=== PATIENT | female | born 1930 | race Caucasian/White ===

== ENCOUNTER 2019-07-12 05:43 | Inpatient (IN) | payer OTHER ==
[~2019-07-12] VITALS: Ht 162.6 cm; Wt 66.2 kg
[2019-07-12 05:44] VITALS: BP 141/58
[2019-07-12 06:10] LABS: ABSOLUTE LYMPHOCYTES 1.1 thou/uL (0.8-5.3); ABSOLUTE MONOCYTES 0.7 thou/uL (0.0-1.2); ABSOLUTE NEUTROPHILS 8.6 thou/uL (1.6-8.1); BASOPHILS 0.2 %; HEMATOCRIT 46.3 % (37.0-47.0); HEMOGLOBIN 16.1 gm/dL (12.0-15.0); LYMPHOCYTES 10.4 %; MCH 34.3 pg (26.0-34.0); MCHC 34.8 g/dL (28.0-37.0); MCV 98.6 fL (80.0-100.0); MONOCYTES 6.8 %; MPV 7.1 fl. (7.2-11.1); NUCLEATED RBCS 0 /100WBC; PLATELET COUNT* 316 thou/uL (150-400); POLYS 82.6 %; RDW-CV 12.7 % (10.5-14.5); WBC 10.4 thou/uL (4.0-11.0)
[2019-07-12 06:23] LABS: INR 1.1; PROTIME 11.4 Seconds (9.20-11.50)
[2019-07-12 06:34] LABS: CALCIUM 8.5 mg/dL (8.5-10.1); CREATININE 1.2 mg/dL (0.6-1.3); POTASSIUM 3.5 mmol/L (3.5-5.1)
[2019-07-12 06:45] LABS: ALBUMIN 3.8 g/dL (3.4-5.0); TOTAL BILIRUBIN 0.2 mg/dL (<0.1-1.0); TOTAL PROTEIN 7.4 g/dL (6.4-8.2)
[2019-07-12 07:01] LABS: URINE BILIRUBIN NEGATIVE (Negative); URINE BLOOD 1+ (Negative); URINE CLARITY CLEAR; URINE COLOR YELLOW; URINE GLUCOSE-RANDOM NEGATIVE (Negative); URINE KETONES 2+ (Negative); URINE LEUKOCYTES-REFLEX NEGATIVE (Negative); URINE NITRITE-REFLEX NEGATIVE (Negative); URINE PROTEIN 2+ (Negative); URINE SPECIFIC GRAVITY >= 1.030 (1.005-1.030); URINE UROBILINOGEN 0.2 E.U./dl (0.2-1.0)
[2019-07-12 07:07] LABS: SQUAMOUS 4-10 Moderate /LPF (0-3)
[2019-07-12 07:08] LABS: BACTERIA-REFLEX >30 Many /HPF (None Seen); CRYSTALS None Seen /LPF (None Seen); FINE GRANULAR CASTS 0-3 Few /LPF (None Seen); HYALINE CASTS 0-3 Few /LPF (None Seen); MUCUS 4-6 Moderate strn/LPF (None Seen); WBC CLUMPS Few (None Seen)
[2019-07-12 07:08] LABS: INFLUENZA A ANTIGEN Negative (Negative); INFLUENZA B ANTIGEN Negative (Negative)
[2019-07-12] MEDS ORDERED: ELIQUIS2.5 MG PO (07:17)
[2019-07-12] MEDS ORDERED: LIPITOR10 MG PO (07:18)
[2019-07-12] MEDS ORDERED: NORCO 5-325 TA1 EAC1 PO (07:18)
--- NOTE | 2019-07-12 07:27 | NUR ---
PT ASKED THAT WE CALL HER DAUGHTER, MICHELLE TREADWELL [phone], TO GET ACCURATE MEDICATION RECORD FOR THE PT. THE PATIENT'S DAUGHTER STATES THAT THE PATIENT IS WITHDRAWING FROM HYDROCODONE AT THIS TIME AND THAT IS THE REASON SHE CALLED EMS. PT RAN OUT OF HYDROCODONE ON FRIDAY AND C/O HEADACHE, NAUSEA AND VOMITING AT THIS TIME. ER PHYSICIAN MADE AWARE OF SITUATION. THE PATIENT DAUGHTER STATES THAT THIS HAPPENS FREQUENTLY AND THE PATIENT NORMALLY GOES TO [place] AND WAS CONFUSED TO WHY SHE WAS BROUGHT TO THIS FACILITY. SHE STATES THAT [facility] KNOWS THE PATIENT WELL AND THAT SHE IS DEPENDENT ON HYDROCODONE.
[2019-07-12 08:08] VITALS: BP 111/49
[2019-07-12 08:30] VITALS: BP 110/52
[2019-07-12 12:00] VITALS: BP 138/71
--- NOTE | 2019-07-12 12:10 | NUR ---
RECEIVED REPORT FROM ER, GET SITUATED TO ROOM. TELE IN PLACED TRACING V PACED. AOX3, FORGETFUL, O2 SAT 90'S RA. UP WITH ASSIST, USES WALKER. PT COMPLAINS OF HEADACHE. PAIN MEDS GIVEN AT ED. PT ON IV FLUIDS. PT ADMISSION ASSESSMENT CHARTED. VSS, HOURLY ROUNDING. WILL CONTINUE TO MONITOR,
[2019-07-12 16:14] VITALS: BP 136/73
[2019-07-12 20:00] VITALS: BP 110/71
[2019-07-13] VITALS: BP 132/59
[2019-07-13 04:00] VITALS: BP 148/69
[2019-07-13 06:09] LABS: ABSOLUTE LYMPHOCYTES 2.6 thou/uL (0.8-5.3); ABSOLUTE MONOCYTES 0.6 thou/uL (0.0-1.2); ABSOLUTE NEUTROPHILS 2.9 thou/uL (1.6-8.1); BASOPHILS 0.5 %; EOSINOPHILS 0.4 %; HEMATOCRIT 37.6 % (37.0-47.0); LYMPHOCYTES 42.4 %; MCH 34.6 pg (26.0-34.0); MCHC 34.6 g/dL (28.0-37.0); MONOCYTES 9.8 %; MPV 6.8 fl. (7.2-11.1); NUCLEATED RBCS 0 /100WBC; PLATELET COUNT* 256 thou/uL (150-400); POLYS 46.9 %; RBC 3.76 mil/uL (4.20-5.00); WBC 6.2 thou/uL (4.0-11.0)
[2019-07-13 06:17] LABS: CALCIUM 8.1 mg/dL (8.5-10.1); POTASSIUM 3.4 mmol/L (3.5-5.1)
--- NOTE | 2019-07-13 07:44 | NUR ---
ASSUMED PT CARE AT APPROX 1930. PT IS AWAKE AND ORIENTED X4. VSS ON 2L OF O2/NC. PT IS V-PACED ON THE SENIOR FOREMAN, SOMETIMES SR w/ 1DAVB. ASSESSMENT DONE AND CHARTED. PT C/O HEADACHE PARTIALLY RELIEVED BY PAIN MEDS GIVEN PER OCT. CALL LIGHT WITHIN REACH. HOURLY ROUNDING DONE FOR PT SAFETY. HIGH FALL PRECAUTIONS IN PLACE.
[2019-07-13 08:00] VITALS: BP 154/62
--- NOTE | 2019-07-13 10:53 | EKG ---
[place] [address] ELECTROCARDIOGRAM REPORT Name: KWESI PERERA Room: [address] ADM IN [facility].#: [id number] Admission: 07/12/19 Attend Phys: Thais Sethi Discharge: Date of : [birth year] Report #: [id number] THIS REPORT FOR: //name// [facility] ED Test Date: 2019-07-12 Test Time: 05:51:33 Pat Name: KWESI PERERA Department: Room: [facility] Gender: F Orthopedics Pediatric Physician: TYRELL : 1930 Requested By: Ismael Acuna Order Number: [id number] MD: Richard Dominguez Measurements Intervals [place] Rate: 101 P: 0 PA: 104 QRS: -57 QRSD: 160 T: 117 QT: 413 QTc: 536 Interpretive Statements Ventricular-paced rhythm No further analysis attempted due to paced rhythm Baseline wander in lead(s) I,III,aVL,aVF No previous ECG available for comparison Electronically Signed On 07-13-2019 10:52:46 PATTERN GENERATOR OPERATOR by Richard Dominguez [email or web address] <ELECTRONICALLY SIGNED> By: Richard Dominguez MD, FACC 07/13/19 1052 0551 0551 Richard Dominguez MD, FAC /EPI
--- NOTE | 2019-07-13 11:05 | NUR ---
ASSUMED PT CARE AT 0800, AOX4, UP SBA, USES WALKER.O2 SAT 90'S RA. TRACING SR, 1ST DEGREE ON TELE. PT COMPLAINS OF CHRONIC HEADACHE. PAIN MEDS GIVEN PER MAR. PT ON FLUIDS. PT ON VANC. PT HAS ID CONSULT. VSS, AM ASSESSMENT CHARTED, HOURLY ROUNDING, WILL CONTINUE TO MONITOR.
[2019-07-13 12:38] VITALS: BP 107/47
--- NOTE | 2019-07-13 14:26 | NUR ---
MET WITH PT TO DISCUSS HOME SITUATION/DC PLANNING. PT LIVES ALONE IN APT, IS INDEPENDENT AND ACTIVE. USES WALKER WITH SEAT. INDEPENDENT WITH ADLS. DTR DOES SHOPPING AND TAKES TO APPTS. PT HAS HAD HH IN THE PAST, CANNOT REMEMBER NAME OF AGENCY. PT DENIES ANY DC NEEDS. PLANS TO RETURN HOME. WILL FOLLOW
[2019-07-13 20:00] VITALS: BP 131/58
--- NOTE | 2019-07-14 04:25 | NUR ---
ASSUMED PT CARE AT APPROX 1930. PT IS AWAKE AND ORIENTED X4. VSS ON ROOM AIR. ASSESSMENT DONE AND CHARTED. PAIN MEDS GIVEN PER MAR FOR HEADACHE. HIGH FALL PRECAUTIONS IN PLACE. CALL LIGHT WITHIN REACH. HOURLY ROUNDING DONE FOR PT SAFETY.
[2019-07-14 04:31] VITALS: BP 127/57
[2019-07-14 07:59] VITALS: BP 150/54
--- NOTE | 2019-07-14 09:33 | NUR ---
ASSUMED CARE OF PT THIS AM AROUND 714- MS STAUS IN PLACE AND MAINTAINED INDICATED- UPON ASSESSMENT PT NOTED TO BE RESTING IN BED- PT A&O X4- CONTINENT OF BOWEL/BLADDER- SBA WITH RW FOR TRANSFERS- LCTA, RESP EVEN AND UN-LABORED- VSS, O2 SAT 99% ON RA- ABD SOFT/ROUND/NON-TENDER, BS X4 QUADS- LAST BM REPORTED X3 DAYS AGO- IV NOTED TO LEFT FA INTACT, IVF INFUSSING PRESCRIBED- IV ABT GIVEN THIS AM PRESCRIBED- GOOD PO INTAKE NOTED THIS AM- PT DENIES ANY C/O PAIN/DISCOMFORT AT THIS TIME- CALL LIGHT AND PERSONAL BELONGINGS WITH IN REACH- PT MAKES NEEDS KNOWN- ALL NEEDS MET AT THIS TIME-WCTM
[2019-07-14 11:30] VITALS: BP 157/73
--- NOTE | 2019-07-14 11:48 | CON ---
[address] [address] CONSULTATION Name: KWESI PERERA Room: [address] IN .R.#: [id number] Admission: 07/12/19 Attend Phys: Thais Sethi Discharge: Date of : [birth year] Report #: [id number] THIS REPORT FOR: //name// CC: Chikis Urbina DATE OF SERVICE: 07/13/2019 INFECTIOUS DISEASE CONSULTATION ATTENDING PHYSICIAN: Wilver Ryan MD REASON FOR EVALUATION: Positive blood culture. HISTORY OF PRESENT ILLNESS: Chart reviewed, the patient examined. This 88-year-old with history of cardiac dysrhythmias has a pacemaker, chronic pain requiring narcotics, who presented with 1-day history of nausea, emesis, abdominal-related complaints and diarrhea. Due to her age, I did undergo evaluation as well as symptomatic treatment. Lactic acid was elevated at 4.7. Influenza antigen was negative. Urinalysis did show moderate degree of pyuria, marked bacteriuria. Chest x-ray was otherwise unremarkable. Blood cultures were drawn at that point now 1 out of 2 with growth of gram-positive cocci, empirically started on vancomycin. She states she feels much better. She did apparently have hallucinations, which has been attributed to the fentanyl. Denies significant pulmonary-related complaints and GI signs and symptoms have improved as well. ALLERGIES: None known. CURRENT MEDICATIONS: Include vancomycin, pantoprazole, atorvastatin, apixaban, hydrocodone, p.r.n. analgesics and antiemetics. PAST MEDICAL HISTORY: Pacemaker placement, chronic pain syndrome. SOCIAL HISTORY: Nonsmoker, no ethanol, no illicit drug use. FAMILY HISTORY: Noncontributory. REVIEW OF SYSTEMS: Otherwise, unremarkable 10-point review of systems with exception of the above. PHYSICAL EXAMINATION: GENERAL: She is quite distressed. It is related to anxiety and hallucinations last night. She was able to be redirected, appears somewhat chronically ill. VITAL SIGNS: Temperature 98.4, pulse 88, respirations 20, blood pressure 154/62[place] [address] CONSULTATION Name: KWESI PERERA Room: [address]#: [id number] Admission: 07/12/19 Attend Phys: Thais Sethi Discharge: Date of : [birth year] Report #: [id number] SKIN: Warm, dry, no rashes. HEENT: Normocephalic. Extraocular muscles intact. NECK: Supple. LUNGS: Diminished breath sounds. HEART: Regular. Borderline tachycardic. I do not appreciate a murmur. ABDOMEN: Soft, nontender. No peritoneal signs. GENITOURINARY AND RECTAL: Deferred. LABORATORY DATA: Blood culture 1 out of 2 with Gram-positive cocci, most recent lactic acid 1.6, that is down from 4.7. Initial CBC: White count 10.4, H and H 16.1 and 46.3, platelets of 316. Electrolytes: Sodium 128, potassium 3.5, chloride 88, bicarb of 17, anion gap of 23, BUN and creatinine 11 and 1.2, albumin of 3.8. LFTs unremarkable. Repeat sodium 142, anion gap of 12. CT abdomen and pelvis showed lumbar scoliosis, extensive vacuum disk changes, moderate atherosclerosis of the aorta, prominent intra and extrahepatic duct post-cholecystectomy, hiatal hernia, problems in the left renal collecting system without obstruction. ASSESSMENT AND PLAN: Positive blood culture in the setting of gram-positive cocci. This is likely due to be a false positive; however, given the lack of confirm diagnosis as to the etiology, may well have been self-limited, perhaps food borne illness. Certainly suggests the possibility of complicated urinary tract infection. In addition to the vancomycin, we will add gram-negative coverage. In the interim, wait for culture results. She remains tenuous at this point. We will monitor expectantly. Add incentive spirometry. Thank you, we will follow. <ELECTRONICALLY SIGNED> By: Anderson Malcolm MD 07/14/19 1148 1144 1210Joayleen Malcolm MD /nt
[2019-07-14 20:15] VITALS: BP 140/66
[2019-07-15 02:00] VITALS: BP 153/67
--- NOTE | 2019-07-15 05:01 | NUR ---
PT SLEPT ON AND OFF THIS SHIFT. ASSESSMENT DOCUMENTED. MEDS GIVEN PER E-OCT. IV PATENT, FLUIDS INFUSING. PAIN MEDS GIVEN PER E-OCT. PT UP TO BATHROOM SEVERAL TIMES THIS SHIFT. WILL CONTINUE WITH PLAN OF CARE.
[2019-07-15 08:00] VITALS: BP 136/58
--- NOTE | 2019-07-15 08:53 | NUR ---
ASSUMED CARE OF PT THIS AM AROUND 714- MS STATUS IN PLACE AND MAINTAINED INDICATED- UPON ASSESSMENT PT NOTED TO BE RESTING IN BED, HEATING PACK TO HEAD R/T HEADACHE- PT A&O X4- CONTINENT OF B/B- SBA WITH RW FOR TRANSFERS- LCTA, RESP EVEN AND UN-LABORED- VSS, O2 SAT 95% ON RA- ABD SOFT/ROUND/NON-TENDER, BS X4 QUADS- LAST BM REPORTED X4 DAYS AGO, REPORTS TO BE PASSING GAS- IV NOTED TO LEFT FA INTACT, IVF INFUSSING PRESCIBED- IV ABT GIVEN THIS AM PRESCIBED- GOOD PO INTAKE NOTED THIS AM WITH BREAKFAST- CALL LIGHT AND PERSONAL BELONGINGS WITH IN REACH- HOURLY ROUNDS IN PLACE R/T SAFETY/NEEDS- PT MAKES NEEDS KNOWN- ALL NEEDS MET AT THIS TIME-WCTM
[2019-07-15 10:27] VITALS: BP 136/58
--- NOTE | 2019-07-15 15:15 | NUR ---
ORDERS NOTED FOR DC, MET WITH PT TO DISCUSS HH, OPTIONS GIVEN AND [facility]OSE [facility]. CALLED AND FAXED ORDERS TO [facility]. [facility] HERE TO TALK WITH PT. PT TO RETURN TO HER APT, DTR WILL SPANISHER LATER. PT DENIES OTHER DC NEEDS
[2019-07-15] MEDS ORDERED: MINOCYCLINE HC100 M2 PO (15:45)
[2019-07-15 16:00] VITALS: BP 170/63
== END 2019-07-15 18:15 | disposition home health service (06) | DRG 871 ==
LOC: M.ERS 05:43 → M.TBA-ER 06:51 → M.2W 06:51 → M.TBA-ER 07:52 → M.2W 08:24
PROVIDERS: Family Medicine; Internal Medicine; ADMIT Internal Medicine
DX: A41.89 Other specified sepsis (principal); G92 Toxic encephalopathy; N39.0 Urinary tract infection, site not specified; E87.2 Acidosis; E87.1 Hypo-osmolality and hyponatremia; G89.4 Chronic pain syndrome; T50.905A Adverse effect of unspecified drugs, medicaments and biological substances, initial encounter; A08.4 Viral intestinal infection, unspecified; Z79.899 Other long term (current) drug therapy; Z95.0 Presence of cardiac pacemaker; Z87.891 Personal history of nicotine dependence; Y92.89 Other specified places as the place of occurrence of the external cause

== ENCOUNTER 2019-11-30 17:50 | Emergency (ER) | payer OTHER ==
[~2019-11-30] VITALS: Ht 162.6 cm; Wt 55.3 kg
[~2019-11-30 17:50] MED LIST: ELIQUIS2.5 MG PO; LIPITOR10 MG PO; MINOCYCLINE HC100 M2 PO; NORCO 5-325 TA1 EAC1 PO
[2019-11-30 18:53] LABS: ABSOLUTE BASOPHILS 0.1 thou/uL (0.0-0.2); ABSOLUTE MONOCYTES 0.7 thou/uL (0.0-1.2); ABSOLUTE NEUTROPHILS 4.9 thou/uL (1.6-8.1); BASOPHILS 0.7 %; EOSINOPHILS 0.4 %; HEMATOCRIT 46.9 % (37.0-47.0); HEMOGLOBIN 16.2 gm/dL (12.0-15.0); LYMPHOCYTES 25.7 %; MCHC 34.5 g/dL (28.0-37.0); MCV 98.7 fL (80.0-100.0); MONOCYTES 9.5 %; MPV 7.4 fl. (7.2-11.1); NUCLEATED RBCS 0 /100WBC; PLATELET COUNT* 284 thou/uL (150-400); POLYS 63.7 %; RBC 4.75 mil/uL (4.20-5.00); RDW-CV 12.9 % (10.5-14.5); WBC 7.7 thou/uL (4.0-11.0)
[2019-11-30 19:06] LABS: ALBUMIN 4.1 g/dL (3.4-5.0); CALCIUM 9.4 mg/dL (8.5-10.1); CREATININE 1.1 mg/dL (0.6-1.3); POTASSIUM 3.7 mmol/L (3.5-5.1); TOTAL BILIRUBIN 0.3 mg/dL (<0.1-1.0); TOTAL PROTEIN 8.3 g/dL (6.4-8.2)
[2019-11-30 19:16] LABS: URINE BILIRUBIN NEGATIVE (Negative); URINE BLOOD 1+ (Negative); URINE CLARITY CLEAR; URINE COLOR YELLOW; URINE GLUCOSE-RANDOM NEGATIVE (Negative); URINE KETONES NEGATIVE (Negative); URINE LEUKOCYTES-REFLEX NEGATIVE (Negative); URINE NITRITE-REFLEX NEGATIVE (Negative); URINE PROTEIN TRACE (Negative); URINE SPECIFIC GRAVITY 1.015 (1.005-1.030); URINE UROBILINOGEN 0.2 E.U./dl (0.2-1.0)
[2019-11-30 19:22] LABS: MUCUS None Seen strn/LPF (None Seen); SQUAMOUS 0-3 Few /LPF (0-3)
[2019-11-30 19:23] LABS: BACTERIA-REFLEX None Seen /HPF (None Seen); CASTS None Seen /LPF (None Seen); CRYSTALS None Seen /LPF (None Seen); URINE RBC 0-2 Rare /HPF (0-2); URINE WBC-REFLEX None Seen /HPF (0-5)
[2019-11-30 19:29] LABS: AMP/METHAMP Negative (Negative); BARBITURATES Negative (Negative); BENZODIAZEPINES Negative (Negative); COCAINE Negative (Negative); METHADONE Negative (Negative); OPIATES POSITIVE (Negative); PCP Negative (Negative); THC Negative (Negative)
[2019-11-30 20:11] LABS: SALICYLATE < 2.8 mg/dL (2.8-20.0)
[2019-11-30 20:12] LABS: ALCOHOL < 10 mg/dL (<10)
[2019-11-30 22:43] VITALS: BP 139/61
--- NOTE | 2019-12-01 08:51 | EKG ---
[place] [address] ELECTROCARDIOGRAM REPORT Name: KWESI PERERA Room: [facility]#: [id number] Admission: 11/30/19 Attend Phys: Discharge: 11/30/19 Date of : [birth year] Date of Service: 11/30/19 1755 Report #: [id number] THIS REPORT FOR: //name// [facility] ED Test Date: 2019-11-30 Test Time: 17:55:33 Pat Name: KWESI PERERA Department: Room: Gender: F Insurance Salesperson: [facility] : 1930 Requested By: Mian Wang Order Number: [id number] MD: Kamran Linda Measurements Intervals [place] Rate: 108 P: 240 [place]: 167 QRS: -54 QRSD: 164 T: 116 QT: 410 QTc: 550 Interpretive Statements Ventricular-paced rhythm No further analysis attempted due to paced rhythm Compared to ECG 07/12/2019 05:51:33 No significant changes Electronically Signed On 12-01-2019 8:50:23 CDT by Kamran Linda [email or web address] <ELECTRONICALLY SIGNED> By: Kamran Linda MD, FACC 12/01/19 0850 1755 1755 Kamran Linda MD, [facility] /EPI
== END 2019-11-30 22:43 | disposition short-term general hospital (02) ==
LOC: M.ERS 17:50
PROVIDERS: Physician Assistant
DX: F11.10 Opioid abuse, uncomplicated (principal); R45.851 Suicidal ideations; R51 Headache; Z95.0 Presence of cardiac pacemaker

== ENCOUNTER 2020-01-30 17:48 | Inpatient (IN) | payer OTHER ==
[~2020-01-30] VITALS: Ht 162.6 cm; Wt 56.3 kg
[2020-01-30 17:48] VITALS: BP 140/80
[~2020-01-30 17:48] MED LIST changes: +TRAZODONE HCL50 MG PO
[2020-01-30 18:23] LABS: URINE BLOOD 2+ (Negative); URINE CLARITY CLEAR; URINE COLOR YELLOW; URINE GLUCOSE-RANDOM NEGATIVE (Negative); URINE KETONES 2+ (Negative); URINE LEUKOCYTES-REFLEX NEGATIVE (Negative); URINE NITRITE-REFLEX NEGATIVE (Negative); URINE PROTEIN NEGATIVE (Negative); URINE UROBILINOGEN 0.2 E.U./dl (0.2-1.0)
[2020-01-30 18:24] LABS: ICTOTEST (BILI CONFIRMATORY) Negative (Negative); URINE BILIRUBIN 1+ (Negative)
[2020-01-30 18:31] LABS: SQUAMOUS 0-3 Few /LPF (0-3)
[2020-01-30 18:33] LABS: BACTERIA-REFLEX 1-9 Few /HPF (None Seen); CRYSTALS None Seen /LPF (None Seen); HYALINE CASTS 0-3 Few /LPF (None Seen); MUCUS 0-3 Light strn/LPF (None Seen); URINE RBC 0-2 Rare /HPF (0-2); URINE WBC-REFLEX None Seen /HPF (0-5)
[2020-01-30 18:33] LABS: ABSOLUTE EOSINOPHILS 0.1 thou/uL (0.0-0.7); ABSOLUTE LYMPHOCYTES 2.7 thou/uL (0.8-5.3); ABSOLUTE MONOCYTES 0.6 thou/uL (0.0-1.2); ABSOLUTE NEUTROPHILS 2.6 thou/uL (1.6-8.1); BASOPHILS 0.5 %; EOSINOPHILS 1.6 %; HEMATOCRIT 44.9 % (37.0-47.0); HEMOGLOBIN 15.3 gm/dL (12.0-15.0); MCH 33.9 pg (26.0-34.0); MCV 99.6 fL (80.0-100.0); MONOCYTES 10.2 %; MPV 7.3 fl. (7.2-11.1); NUCLEATED RBCS 0 /100WBC; PLATELET COUNT* 231 thou/uL (150-400); POLYS 42.7 %; RBC 4.51 mil/uL (4.20-5.00); RDW-CV 13.7 % (10.5-14.5)
[2020-01-30 18:41] LABS: CALCIUM 9.2 mg/dL (8.5-10.1); CREATININE 1.3 mg/dL (0.6-1.3); POTASSIUM 3.5 mmol/L (3.5-5.1)
[2020-01-30 18:46] LABS: ALBUMIN 3.7 g/dL (3.4-5.0); TOTAL BILIRUBIN 0.6 mg/dL (<0.1-1.0); TOTAL PROTEIN 7.3 g/dL (6.4-8.2)
[2020-01-30 20:46] VITALS: BP 132/70
[2020-01-30 22:00] VITALS: BP 115/51
--- NOTE | 2020-01-31 05:38 | NUR ---
PT ARRIVED ONTO UNIT FROM ER AT APPROX 2100. ALERT AND ORIENTED X 4. PLEASANT. C/O SIGNIFICANT HEADACHE PAIN AND CHRONIC BACK PAIN. TEARFUL AT TIMES. MIN ASSIST GAIT BELT. UP TO BSC. HAS SMALL SCABS TO FOREHEAD AND RIGHT EYELID FROM RECENT FALL. IV INFILTRATED. MULTIPLE ATTEMPTS TO RESTART IV FAILED. WILL PASS ON TO HAVE PICC RN ON DAYSHIFT ATTEMPT WELL. PT AWOKE WITH UNCONTROLLABLE PAIN THAT [facility] WAS NOT HELPING. OBTAINED ORDER FOR OXYCODONE. PT TURNS SELF IN BED. WILL CONTINUE TO MONITOR.
[2020-01-31 08:00] VITALS: BP 147/66
--- NOTE | 2020-01-31 08:15 | NUR ---
VASCULAR ACCESS NURSE CALLED AND I LEFT A MESSAGE. PATIENT HAS FLUIDS ORDERED AND NO LINE.
--- NOTE | 2020-01-31 15:39 | EKG ---
[place] [address] ELECTROCARDIOGRAM REPORT Name: KWESI PERERA Room: [address] IN [facility].#: [id number] Admission: 01/30/20 Attend Phys: Félix Urbina Discharge: Date of : [birth year] Date of Service: 01/30/20 1756 Report #: [id number] THIS REPORT FOR: //name// [facility] ED Test Date: 2020-01-30 Test Time: 17:56:33 Pat Name: KWESI PERERA Department: Room: [facility] Gender: F X Ray Service Technician: YANIRA : 1930 Requested By: Terri Little Order Number: [id number] MD: Carlos Yoo Measurements Intervals [place] Rate: 100 P: 266 [place]: 175 QRS: -55 QRSD: 167 T: 117 QT: 404 QTc: 522 Interpretive Statements Ventricular-paced rhythm No further analysis attempted due to paced rhythm Compared to ECG 11/30/2019 17:55:33 No significant changes Electronically Signed On 01-31-2020 15:38:26 CDT by Carlos Yoo [email or web address] <ELECTRONICALLY SIGNED> By: Carlos Yoo MD, [facility] 01/31/20 1538 1756 1756 Carlos Yoo MD, [facility] /EPI
--- NOTE | 2020-01-31 17:02 | NUR ---
NADIYA spoke with pt nurse, pt dtr and then pt to complete initial assessment. Pt lives at home alone; pt dtr very concerned for pt safety and hopeful for pt to be able to dc to SNF. Pt dtr explained pt extensive narcotic addiction history. Pt has hx of inpt psych at [facility] and [place] hx. Pt dtr said that pt has hx with [facility] and she was not impressed. Pt dtr and DPOA preference for [place] or any [place] [facility], maybe [email or web address] but they are out of network with [facility]. NADIYA spoke with pt who said that she just wants to go home because she "has a bottle of pills there" and she said that "she could get rid of her headache but no one here will give her the right medicine". SW to continue to follow to assist with safe dc planning.
[2020-01-31 17:50] VITALS: BP 136/75
--- NOTE | 2020-01-31 19:35 | NUR ---
I ASSUMED CARE OF THE PATIENT AT 0700. SHE IS ALERT AND ORIENTED X4 AND IS UP WITH ASSIST OF ONE AND A GAIT BELT. BED IS IN THE LOW LOCKED POSITION AND CALL LIGHT IS IN REACH. PAIN IS PARTIALLY MANAGED WITH PRN MEDS, BUT SHE STILL COMPLAINS OF A MIGRAINE. I ATTEMPTED TO GIVE HER A MIGRAINE COCKTAIL AT 1900 BASED ON WHAT SHE HAD ON HER MAR. HOURLY ROUNDING IS COMPLETED AND PATIENT NEEDS ARE MET. SHE IS VERY TEARFUL AND MANIPULATIVE. SHYANNE FROM [facility] CAME AND PLACED AN IV IN THE LEFT FOREARM UNDER ULTRASOUND. SHE REFUSES TURNS BUT DOES WIGGLE AROUND A LOT. HER DAUGHTER IS CONCERNED ABOUT HER GOING HOME ALONE AND FEELS THAT SHE WOULD BENEFIT FROM REHAB AND KNOWS THAT HER INSURANCE WOULD COVER IT. I WILL CONTINUE TO MONITOR.
[2020-01-31 19:55] VITALS: BP 144/72
--- NOTE | 2020-01-31 19:55 | NUR ---
AWAKENED FOR VITAL SIGNS. IV FLUIDS INFUSING WITHOUT DIFFICULTY. TRANSFERRED TO BEDSIDE COMMODE WITH SBA, STAND, PIVOT. PAIN MEDICATION GIVEN FOR COMPLAINT OF BACK PAIN. CALL LIGHT WITHIN REACH.
--- NOTE | 2020-02-01 06:22 | NUR ---
AWAKENED LAST NIGHT TO GO FOR CT'S PER WHEELCHAIR. PATIENT WAS ABLE TO RETURN TO SLEEP. SET BED ALARM OFF X ONE TO START TO GET UP TO BEDSIDE COMMODE WITHOUT ASSIST. HYDROCODONE LAST GIVEN AT 0338 FOR COMPLAINT OF BACK PAIN WITH RELIEF. HOURLY ROUNDING IN PROGRESS.
[2020-02-01 07:50] VITALS: BP 148/70
--- NOTE | 2020-02-01 12:06 | NUR ---
NADIYA spoke with Dr Cedeño about pt dtr's request for possible SNF placement for pt and Dr Cedeño recommmending pt home with HH and OP pain management clinic follow up as pt may not qualify or have needs for SNF as well as pt may not agree with SNF. NADIYA spoke with pt who said that she does not want to go to SNF; she feels that therapy would just cause more pain. NADIYA called pt dtr to explain above and plan for pt dc tomorrow, pt dtr did not answer so SW left a voice message and requested call back. SW to continue to follow to assist with finalizing safe dc plan.
[2020-02-01 16:00] VITALS: BP 125/76
--- NOTE | 2020-02-01 18:08 | NUR ---
PATIENT ASSISTED UP TO CHAIR THIS AM FOR BREAKFAST, PATIENT ATE MEAL THERE BUT THEN CALLED OUT STATING HER BACK HURT TOO MUCH TO SIT UP ANYMORE. PRN HYDROCODONE GIVEN FOR PAIN. PRN MOM GIVEN THIS AM FOR CONSTIPATION, MAG CITRATE GIVEN THIS AFTERNOON ORDERED BY DR. BARBER. PATIENT HAD A VERY SMALL BM THIS AM. IV SL THIS SHIFT. IV ROCEPHIN FOR UTI GIVEN ORDERED. TURNING SELF IN BED. POSSIBLE DISCHARGE TO HOME TOMORROW, PATIENT AMBULTED IN HALLS WITH WALKER WITH PT THIS AFTERNOON.
[2020-02-01 20:17] VITALS: BP 153/88
--- NOTE | 2020-02-02 06:17 | NUR ---
PATIENT IS UP WITH ASSIST TO COMMODE. SHE DID HAVE A BM OVERNIGHT. SHE RECEIVED HYDROCODONE Q4 FOR REPORTED PAIN. SHE REPORTS HER PAIN 8/10 UPON EACH ASSESSMENT. WE TRIED REPOSITIONING HER FOR COMFORT. SHE DID NOT REPORT ANY HEADACHE OR WORSENING OF CONDITION. SHE IS ANXIOUS TO GET HOME AND SAYS SHE IS READY. WILL CONTINUE TO FOLLOW PLAN OF CARE.
[2020-02-02 07:59] VITALS: BP 136/61
[2020-02-02] MEDS ORDERED: VOLTAREN GEL 1100 G1 TOP (08:45)
[2020-02-02] MEDS ORDERED: PREDNISONE 20 M20 MG PO (08:45)
[2020-02-02] MEDS ORDERED: LIDOPATCH1 EACH TOP (08:45)
[2020-02-02] MEDS ORDERED: KEFLEX500 M1 PO (08:45)
[2020-02-02 11:31] VITALS: BP 136/61
--- NOTE | 2020-02-02 14:14 | NUR ---
PATIENT WANTED TO GET UP TO USE THE BSC BUT I WALKED WITH HER TO THE BATHROOM SHE WALKS VERY WELL STEADY GAIT. I TOLD HER THAT WE WOULD JUST AMBULATE TO THE BATHROOM FROM NOW ON. SHE STATED THAT SHE WILL. HER DAUGHTER CALLED TO TALK WITH ME AND TOLD ME THAT THE PATIENT TAKES HER PAIN PILLS SHE WANTS NOT ORDERED AND THAT WHEN SHE RUNS OUT SHE CALLS THE AMBULANCE TO COME HERE SO SHE CAN GET PAIN PILLS UNTIL SHE CAN GET A REFIL. HER DAUGHTER IS CONCERNED THAT SHE IS JUST "PLAYING THE SYSTEM."
[2020-02-02 14:20] VITALS: BP 136/61
--- NOTE | 2020-02-02 16:26 | NUR ---
I JUST EXPLAINED ALL DISCHARGE INSTRUCTIONS TO PATIENT WENT OVER NEW MEDICATIONS AND CONTINUED MEDICATIONS. ANSWERED ALL QUESTIONS AND EXPLAINED WHEN TO CALL THE DOCTOR FOR PROBLEMS AND WHEN TO CALL 911. SHE VERBALIZED UNDERSTANDING OF ALL DISCHARGE INSTRUCTIONS.
--- NOTE | 2020-02-02 17:00 | NUR ---
Pt to dc home today and dtr providing ride home. SW arranged HH with pt/family preference on [facility]; SW Faxed referral and orders and received confirmation that they will accept pt to services. Pt choice provided option of following up with pain clinic management.
== END 2020-02-02 18:00 | disposition home or self-care (01) | DRG 690 ==
LOC: M.ERS 17:48 → M.3W 19:43 → M.TBA-ER 19:43 → M.ERS 20:47 → M.3W 21:22
PROVIDERS: Physician Assistant; ADMIT Internal Medicine; ATTEND Internal Medicine
DX: N39.0 Urinary tract infection, site not specified (principal); G89.29 Other chronic pain; M54.9 Dorsalgia, unspecified; E78.5 Hyperlipidemia, unspecified; R32 Unspecified urinary incontinence; M48.061 Spinal stenosis, lumbar region without neurogenic claudication; F17.200 Nicotine dependence, unspecified, uncomplicated; I10 Essential (primary) hypertension; Z95.0 Presence of cardiac pacemaker; Z90.49 Acquired absence of other specified parts of digestive tract; Z90.710 Acquired absence of both cervix and uterus; Z79.01 Long term (current) use of anticoagulants; Z79.899 Other long term (current) drug therapy

== ENCOUNTER 2020-02-14 17:29 | Emergency (ER) | payer OTHER ==
[~2020-02-14] VITALS: Ht 165.1 cm; Wt 57.6 kg
--- NOTE | ~2020-02-14 | EMS ---
[address] [address] EMS Patient Care Report Name: KWESI CADE Room: [facility]#: [id number] Admission: 02/14/20 Attend Phys: Discharge: Date of : [birth year] Report #: [id number] THIS REPORT FOR: //name// Report Transmitted: 02/14/2020 20:[address] [facility] Incident [id number] @ 02/14/2020 16:26 Incident [address] [place] [address] Patient Kwesi Cade Female, 89 Years 1930 Patient Address [address] [place] [address] Patient History Pacemaker/AICD, Patient Allergies No known allergies, Patient Medications , Eliquis, Cephalexin, atorvastatin, Prednisone, Voltaren, Paron, Chief Complaint Pain Disposition Transported No Lights/[place] Dispatch Reason Sick Person Transported To [facility] Narrative [facility] dispatched for opioid withdrawal. Arrived on scene of a senior apartment complex. Patient's apartment is located on the first floor. Upon entering, patient is found left lateral on the couch crying in pain. Patient is alert, oriented with no immediate life-threats noted. [place] [address] [place] Patient Care Report Name: KWESI CADE Room: [facility]#: [id number] Admission: 02/14/20 Attend Phys: Discharge: Date of : [birth year] Report #: [id number] patient has been a Hydrocodone user for the past 30 years for chronic pain. Patient was prescribed 150 pills on 01/19/20. She has ran out since 329 and is unable to get a refill because it is too soon. Daughter stated that she is normally told to take one pill every five hours. She was recently admitted to [facility] for UTI and pain management. At discharge she was instructed to take one pill every four hours causing her to run out of medication early. Prescribing physician will not authorize a refill until Friday. Patient lives alone and has not been taking her other medications regularly per daughter, which patient denies. vitals obtained at patient side. Daughter requests transport back to [facility] for pain management. Cot brought to patient side. Patient was assisted from couch to cot without incident. Patient sat in a position of comfort, was secured via safety straps plus side rails. She was taken to ambulance and loaded without incident. Attempted IV access without success. Offered patient pain medication intranasally, which she accepted. Fentanyl administered as documented with no improvement in patient's pain per her report. Patient remained monitored with supportive care provided. At destination, signature obtained. Patient was unloaded and taken to room and all monitoring removed. Patient was transferred to facility bed via drawsheet and help from staff. Report, paperwork to RN and signature obtained. Narcotic waste performed and form signed. Care transferred and call cleared. Initial Vitals @16:37Pain: 05/20, @17:15Pain: 05/20, @16:41SpO2: 97, @16:51SpO2: 98, @17:08SpO2: 98, @17:15SpO2: 98, @17:19SpO2: 97, @16:54 @16:41P: 110,R: 17,BP: 162/74, @16:51P: 117,R: 17,BP: 145/84, @17:08P: 114,R: 17,BP: 156/90, @17:15P: 109,R: 17,BP: 152/81, @17:19P: 108,R: 17,BP: 162/76, @16:41GCS: 15, @16:51GCS: 15, @17:08GCS: 15, @17:15GCS: 15, @17:19GCS: 15, @16:36 Assessments @16:36MENTAL:SKIN:HEENT:LUNG SOUNDS:ABDOMEN:PELVIS//GI:EXTREMITIES:PULSE:NEURO: [place] [address] EMS Patient Care Report Name: KWESI CADE [id number] Admission: 02/14/20 Attend Phys: Discharge: Date of : [birth year] Report #: [id number] Impression Acute pain, not elsewhere classified Procedures @17:08Fentanyl - 50.000 Micrograms (mcg) - IntranasalResponse: Unchanged@17:20Fentanyl - 25.000 Micrograms (mcg) - IntranasalResponse: Improved@16:54 cc () Site: Forearm-LeftResponse: UnchangedFailed@17:00 cc () Site: Forearm-RightResponse: UnchangedFailed@17:00 cc () Site: Forearm-RightResponse: UnchangedFailed@16:543-Lead ECGResponse: UnchangedSucceeded Timeline 16:21,Call Received 16:21,Dispatch Notified 16:,Psap Call 16:26,Dispatched 16:27,En Route 16:33,On Scene 16:36,At Patient 16:36,BP: / M,PULSE: ,RR: R,SPO2: Ox,ETCO2: ,BG: ,PAIN: ,GCS: , 16:37,BP: / M,PULSE: ,RR: R,SPO2: Ox,ETCO2: ,BG: ,PAIN: 10,GCS: , 16:41,BP: / M,PULSE: ,RR: R,SPO2: 97 Ox,ETCO2: ,BG: ,PAIN: ,GCS: , 16:41,BP: 162/74 M,PULSE: 110,RR: 17 R,SPO2: Ox,ETCO2: ,BG: ,PAIN: ,GCS: , 16:41,BP: / M,PULSE: ,RR: R,SPO2: Ox,ETCO2: ,BG: ,PAIN: ,GCS: 15, 16:51,BP: / M,PULSE: ,RR: R,SPO2: 98 Ox,ETCO2: ,BG: ,PAIN: ,GCS: , 16:51,BP: 145/84 M,PULSE: 117,RR: 17 R,SPO2: Ox,ETCO2: ,BG: ,PAIN: ,GCS: , 16:51,BP: / M,PULSE: ,RR: R,SPO2: Ox,ETCO2: ,BG: ,PAIN: ,GCS: 15, 16:54, cc Site: Forearm-Left,Response: UnchangedFailed, 16:54,3-Lead ECG,Response: UnchangedSucceeded, 16:54,BP: / M,PULSE: ,RR: R,SPO2: Ox,ETCO2: ,BG: ,PAIN: ,GCS: , 17:00, cc Site: Forearm-Right,Response: UnchangedFailed, 17:00, cc Site: Forearm-Right,Response: UnchangedFailed, 17:08,Fentanyl - 50.000 Micrograms (mcg) - Intranasal,Response: Unchanged 17:08,BP: / M,PULSE: ,RR: R,SPO2: 98 Ox,ETCO2: ,BG: ,PAIN: ,GCS: , 17:08,BP: 156/90 M,PULSE: 114,RR: 17 R,SPO2: Ox,ETCO2: ,BG: ,PAIN: ,GCS: , 17:08,BP: / M,PULSE: ,RR: R,SPO2: Ox,ETCO2: ,BG: ,PAIN: ,GCS: 15, 17:10,Depart Scene 17:15,BP: / M,PULSE: ,RR: R,SPO2: Ox,ETCO2: ,BG: ,PAIN: 10,GCS: , 17:15,BP: / M,PULSE: ,RR: R,SPO2: 98 Ox,ETCO2: ,BG: ,PAIN: ,GCS: , 17:15,BP: 152/81 M,PULSE: 109,RR: 17 R,SPO2: Ox,ETCO2: ,BG: ,PAIN: ,GCS: , 17:15,BP: / M,PULSE: ,RR: R,SPO2: Ox,ETCO2: ,BG: ,PAIN: ,GCS: 15, 17:19,BP: / M,PULSE: ,RR: R,SPO2: 97 Ox,ETCO2: ,BG: ,PAIN: ,GCS: , 17:19,BP: 162/76 M,PULSE: 108,RR: 17 R,SPO2: Ox,ETCO2: ,BG: ,PAIN: ,GCS: , 17:19,BP: / M,PULSE: ,RR: R,SPO2: Ox,ETCO2: ,BG: ,PAIN: ,GCS: 15, 17:20,Fentanyl - 25.000 Micrograms (mcg) - Intranasal,Response: Improved 17:24,At Destination [address] [address] EMS Patient Care Report Name: KWESI CADE Room: [facility]#: [id number] Admission: 02/14/20 Attend Phys: Discharge: Date of : [birth year] Report #: [id number] 17:41,Call Closed Disclaimer v1.1 Copyright 2020 [employer] This EMS Care Summary contains data elements from the applicable legal record (which may be displayed differently). It is designed to provide pertinent information for the following purposes: continuity of care, clinical quality, and state data reporting. The complete legal record is available to ED staff and administrators of the receiving hospital in [employer] Patient Tracker. All data is provided "as is."
[~2020-02-14 17:29] MED LIST changes: +KEFLEX500 M1 PO; +LIDOPATCH1 EACH TOP; +PREDNISONE 20 M20 MG PO; +VOLTAREN GEL 1100 G1 TOP
[2020-02-14 18:08] LABS: ABSOLUTE BASOPHILS 0.1 thou/uL (0.0-0.2); ABSOLUTE LYMPHOCYTES 1.8 thou/uL (0.8-5.3); ABSOLUTE MONOCYTES 0.8 thou/uL (0.0-1.2); ABSOLUTE NEUTROPHILS 6.5 thou/uL (1.6-8.1); BASOPHILS 0.6 %; EOSINOPHILS 0.3 %; HEMATOCRIT 44.2 % (37.0-47.0); LYMPHOCYTES 19.2 %; MCH 34.5 pg (26.0-34.0); MCHC 33.9 g/dL (28.0-37.0); MCV 101.9 fL (80.0-100.0); MONOCYTES 8.8 %; MPV 7.8 fl. (7.2-11.1); NUCLEATED RBCS 0 /100WBC; PLATELET COUNT* 198 thou/uL (150-400); POLYS 71.1 %; RBC 4.33 mil/uL (4.20-5.00); RDW-CV 14.2 % (10.5-14.5); WBC 9.2 thou/uL (4.0-11.0)
[2020-02-14 18:14] LABS: CALCIUM 8.6 mg/dL (8.5-10.1); CREATININE 1.1 mg/dL (0.6-1.3); POTASSIUM 3.7 mmol/L (3.5-5.1)
[2020-02-14 18:19] LABS: ALBUMIN 3.6 g/dL (3.4-5.0); TOTAL BILIRUBIN 0.4 mg/dL (<0.1-1.0); TOTAL PROTEIN 7.2 g/dL (6.4-8.2)
[2020-02-14] MEDS ORDERED: HYDROCODON-ACE1 EAC7 PO (22:07)
[2020-02-14 22:26] VITALS: BP 140/68
--- NOTE | 2020-02-15 09:50 | EKG ---
[place] [address] ELECTROCARDIOGRAM REPORT Name: KWESI PERERA Room: [facility]#: [id number] Admission: 02/14/20 Attend Phys: Discharge: 02/14/20 Date of : [birth year] Date of Service: 02/14/20 1739 Report #: [id number] THIS REPORT FOR: //name// [facility] ED Test Date: 2020-02-14 Test Time: 17:39:43 Pat Name: KWESI PERERA Department: Room: Gender: F Fur Designer: CCD : 1930 Requested By: Blaise Marroquin Order Number: [id number] MD: Kamran Linda Measurements Intervals Dawson Rate: 94 P: 89 NJ: 198 QRS: -52 QRSD: 150 T: 114 QT: 416 QTc: 521 Interpretive Statements atrial sensed and Ventricular-paced rhythm No further analysis attempted due to paced rhythm Compared to ECG 01/30/2020 17:56:33 No significant changes Electronically Signed On 02-15-2020 9:49:50 CDT by Kamran Linda [email or web address] <ELECTRONICALLY SIGNED> By: Kamran Linda MD, [facility] 02/15/20 0949 1739 1739 Kamran Linda MD, [facility] /EPI
== END 2020-02-14 22:30 | disposition home or self-care (01) ==
LOC: M.ERS 17:29
PROVIDERS: Emergency Medicine Emergency Medical Services
DX: F11.23 Opioid dependence with withdrawal (principal); I10 Essential (primary) hypertension; E78.5 Hyperlipidemia, unspecified; G89.29 Other chronic pain; Z90.49 Acquired absence of other specified parts of digestive tract; Z90.89 Acquired absence of other organs; Z90.710 Acquired absence of both cervix and uterus

== ENCOUNTER 2020-02-16 14:39 | Observation (INO) | payer OTHER ==
[~2020-02-16] VITALS: Ht 162.6 cm; Wt 57.2 kg
[~2020-02-16 14:39] MED LIST changes: +HYDROCODON-ACE1 EAC7 PO
[2020-02-16 14:58] VITALS: BP 145/74
[2020-02-16 15:02] LABS: ABSOLUTE LYMPHOCYTES 1.3 thou/uL (0.8-5.3); ABSOLUTE MONOCYTES 0.5 thou/uL (0.0-1.2); ABSOLUTE NEUTROPHILS 5.5 thou/uL (1.6-8.1); BASOPHILS 0.6 %; EOSINOPHILS 0.3 %; HEMATOCRIT 43.5 % (37.0-47.0); HEMOGLOBIN 15.1 gm/dL (12.0-15.0); LYMPHOCYTES 17.3 %; MCH 34.1 pg (26.0-34.0); MCHC 34.7 g/dL (28.0-37.0); MCV 98.5 fL (80.0-100.0); MONOCYTES 7.1 %; MPV 7.5 fl. (7.2-11.1); NUCLEATED RBCS 0 /100WBC; PLATELET COUNT* 210 thou/uL (150-400); POLYS 74.7 %; RBC 4.42 mil/uL (4.20-5.00); RDW-CV 14.1 % (10.5-14.5); WBC 7.3 thou/uL (4.0-11.0)
[2020-02-16 15:14] LABS: APTT 26.8 Seconds (25.0-31.3); CALCIUM 8.7 mg/dL (8.5-10.1); POTASSIUM 4.3 mmol/L (3.5-5.1); PROTIME 10.7 Seconds (9.20-11.50)
[2020-02-16 15:26] LABS: ALBUMIN 3.7 g/dL (3.4-5.0); CK-MB MASS 0.6 ng/mL (<0.5-3.6); MAGNESIUM 1.9 mg/dL (1.8-2.4); TOTAL BILIRUBIN 0.4 mg/dL (<0.1-1.0); TOTAL PROTEIN 7.6 g/dL (6.4-8.2)
[2020-02-16 17:26] LABS: AMP/METHAMP Negative (Negative); BARBITURATES Negative (Negative); BENZODIAZEPINES Negative (Negative); COCAINE Negative (Negative); METHADONE Negative (Negative); OPIATES POSITIVE (Negative); PCP Negative (Negative); THC Negative (Negative)
[2020-02-16 19:30] VITALS: BP 119/51
--- NOTE | 2020-02-16 19:49 | NUR ---
PT TRANSPORTED TO ROOM 231. REPORT GIVEN TO PARAM LAZO.
[2020-02-16 23:55] VITALS: BP 89/42
[2020-02-17 04:56] LABS: ABSOLUTE BASOPHILS 0.1 thou/uL (0.0-0.2); ABSOLUTE EOSINOPHILS 0.1 thou/uL (0.0-0.7); ABSOLUTE LYMPHOCYTES 2.9 thou/uL (0.8-5.3); ABSOLUTE MONOCYTES 0.8 thou/uL (0.0-1.2); ABSOLUTE NEUTROPHILS 3.3 thou/uL (1.6-8.1); BASOPHILS 0.8 %; EOSINOPHILS 1.7 %; HEMATOCRIT 36.1 % (37.0-47.0); LYMPHOCYTES 40.6 %; MCH 34.3 pg (26.0-34.0); MCHC 34.2 g/dL (28.0-37.0); MCV 100.2 fL (80.0-100.0); MONOCYTES 11.6 %; MPV 7.9 fl. (7.2-11.1); NUCLEATED RBCS 0 /100WBC; PLATELET COUNT* 195 thou/uL (150-400); POLYS 45.3 %; WBC 7.2 thou/uL (4.0-11.0)
[2020-02-17 05:19] LABS: HEMOGLOBIN 12.4 gm/dL (12.0-15.0)
[2020-02-17 05:20] LABS: CREATININE 1.6 mg/dL (0.6-1.3); POTASSIUM 3.7 mmol/L (3.5-5.1)
[2020-02-17 06:09] VITALS: BP 92/42
[2020-02-17 08:35] VITALS: BP 117/60
--- NOTE | 2020-02-17 09:48 | NUR ---
ASSUMED CARE OF PT THIS AM AROUND 07- MEDICAL RESEARCH ASSOCIATE IN PLACE ORDERED, TRACING A/V APACED WITH BBB- UPON ASSESSMENT PT NOTED TO BE RESTING IN BED WITH EYES CLOSED- PT ARROUSABLE AND A&O X4- CONT OF B/B- SBA WITH RW FOR SAFEY- LCTA, RESP EVEN AND UN-LABORED- VSS, O2 SAT 95% ON RA- ABD SOFT/FLAT/NON-TENDER, BS X4 QUADS- LAST BM REPORTED 02/16/20- IV NOTED TO RIGHT AC INTACT AND SL- SET UP ASSIST WITH GOOD PO INTAKE NOTED THIS AM- CHRONIC BACK PAIN WITH PRN PAIN MEDICATIONS INDICATED- CALL LIGHT AND PERSONAL BELONGINGS WITH IN REACH- ALL NEEDS MET AT THIS TIME-WCTM
[2020-02-17 10:38] VITALS: BP 117/60
[2020-02-17 12:00] VITALS: BP 98/47
--- NOTE | 2020-02-17 12:31 | EKG ---
[place] [address] ELECTROCARDIOGRAM REPORT Name: KWESI PERERA Room: [address]#: [id number] Admission: 02/16/20 Attend Phys: Wilver Ryan, Discharge: Date of : [birth year] Date of Service: 02/16/20 1438 Report #: [id number] THIS REPORT FOR: //name// [facility] ED Test Date: 2020-02-16 Test Time: 14:38:40 Pat Name: KWESI PERERA Department: Room: [facility] Gender: F Ballistic Expert: KRISTINA : 1930 Requested By: Ismael Acuna Order Number: [id number] MD: Richard Dominguez Measurements Intervals [place] Rate: 95 P: 32 MS: 48 QRS: -60 QRSD: 153 T: 111 QT: 414 QTc: 521 Interpretive Statements A-V dual-paced rhythm with some inhibition No further analysis attempted due to paced rhythm Baseline wander in lead(s) I,II,aVR,aVL,V5 Compared to ECG 02/14/2020 17:39:43 No significant changes Electronically Signed On 02-17-2020 12:31:46 CDT by Richard Dominguez [email or web address] <ELECTRONICALLY SIGNED> By: Richard Dominguez MD, [facility] 02/17/20 1231 1438 1438 Richard Dominguez MD, [facility] /EPI
[2020-02-17] MEDS ORDERED: HYDROCODON-ACE1 EAC7 PO (14:28)
--- NOTE | 2020-02-17 16:37 | NUR ---
SPOKE WITH PT. SHE WAS ALERT AND ORIENTED. SHE LIVES ALONE IN A HOUSE. HAS A WALKER AND WC. [facility] ASSESSMENT DONE SHE IS 89. SHE SAID SHE MANAGES OK AT HOME BY HERSELF. HAS A DAUGHTER, THAT WILL PICK HER UP. SHE IS SUPPORTIVE. HAS HX OF [facility]. NOT ORDERED THIS ADMISSION.
== END 2020-02-17 17:30 | disposition home or self-care (01) ==
LOC: M.ERS 14:39 → M.2W 15:28 → M.TBA-ER 15:28 → M.2W 20:34
PROVIDERS: Family Medicine; ADMIT Internal Medicine; ATTEND Internal Medicine
DX: Z03.818 Encounter for observation for suspected exposure to other biological agents ruled out (principal); R07.89 Other chest pain; M54.9 Dorsalgia, unspecified; G89.29 Other chronic pain; I10 Essential (primary) hypertension; E78.5 Hyperlipidemia, unspecified

== ENCOUNTER 2020-11-15 04:21 | Emergency (ER) | payer OTHER ==
[~2020-11-15] VITALS: Ht 162.6 cm; Wt 59.9 kg
--- NOTE | ~2020-11-15 | EMS ---
[address] [address] EMS Patient Care Report Name: KWESI CADE Room: [facility]#: [id number] Admission: 11/15/20 Attend Phys: Discharge: Date of : [birth year] Report #: [id number] THIS REPORT FOR: //name// Report Transmitted: 11/15/2020 06:[address] [facility] Incident [id number] @ 11/15/2020 03:48 Incident Location [address] [place] [id number] Patient KWESI CADE Female, 89 Years 1930 Patient Address [id number] [place] [address] [address] [place] [address] Patient History Other chronic pain,Myocardial Infarction ([place]),Hyperlipidemia, Patient Allergies , Patient Medications Lipitor, Protonix, Eliquis, Diltiazem, Hydrocodone, Chief Complaint Pain-musculoskeletal Disposition Transported No Lights/[place] Dispatch Reason Chest Pain (Non-Traumatic) Transported To [facility] Narrative [facility] dispatched for chest pain and back pain. Secondary dispatch information includes pain all over and patient has been out of her pain medications for several days. Arrived on scene to a fci apartment complex with the [place] [employer] ([facility]). As EMS and [facility] entered the residence, the [address] [place] [address] EMS Patient Care Report Name: KWESI CADE Room: [facility]#: [id number] Admission: 11/15/20 Attend Phys: Discharge: Date of : [birth year] Report #: [id number] patient (Kwesi Cade-89 year old female) is seen sitting on the edge of her couch in distress but no life threats are apparent, no bleeding or injury noted. Kwesi states that she is in pain all over her body, that she is having chest pain and back pain because she has not had any of her pain medications since 11:00am, that she needs her pain medication refilled. Kwesi denies any injury, shortness of breath, dizziness, nausea or vomiting. Kwesi states she is only in pain because she has to take her pain medication every 4 hours and when she doesn't she is in extreme pain. Kwesi states she wants to go to the ER so she can get some pain medication. Kwesi is conscious and alert to person, place, time and event. Airway is open and patent, with adequate rate and depth of respirations, able to speak in full non labored sentences, no cyanosis noted. Radial pulse is present with cap refill 1-2 seconds. Kwesi is able to stand and ambulate to the cot in the hallway without difficulty, sit on the cot in semi fowlers position and is secured with all safety straps. Cot elevated and wheeled to the ambulance where it is loaded and secured without incident. In ambulance, 4 lead, 12 lead and vitals obtained as documented. Kwesi continues to state that she is in pain, describing it as a constant sharp, stabbing pain. Kwesi states that her daughter is who refills and picks up all her medications for her. Kwesi requests to be transported to [facility]. Kwesi is transported to [facility] without incident and no change in her condition. Transport signature obtained. Cot unloaded and wheeled inside ER, directed to ER 16. Cot brought to side of ER bed and lowered. Kwesi is unsecured and transferred by slide method without incident. Transfer of care report is given to CLIFTON Chapman and transfer of care signature is obtained. Care transferred. [facility] 322 clear and available Initial Vitals @04:10Pain: 05/20, @04:19Pain: 05/20, @04:08SpO2: 97, @04:20SpO2: 97, @04:13 @04:08P: 93,R: 17,BP: 144/74, @04:20P: 96,R: 17,BP: 155/64, @04:08GCS: 15, @04:20GCS: 15, @04:02 Assessments @04:00MENTAL:SKIN:HEENT:LUNG SOUNDS:ABDOMEN:PELVIS//GI:EXTREMITIES:PULSE:NEURO: Impression Chest Pain, Other (Non-[place]) [place] [address] EMS Patient Care Report Name: KWESI CADE Room: [facility].#: [id number] Admission: 11/15/20 Attend Phys: Discharge: Date of : [birth year] Report #: [id number] @04:1312-Lead ECGResponse: UnchangedSucceeded Timeline 03:47,Call Received 03:47,Dispatch Notified 03:47,Psap Call 03:48,Dispatched 03:49,En Route 03:56,On Scene 04:00,At Patient 04:02,BP: / M,PULSE: ,RR: R,SPO2: Ox,ETCO2: ,BG: ,PAIN: ,GCS: , 04:08,BP: / M,PULSE: ,RR: R,SPO2: 97 Ox,ETCO2: ,BG: ,PAIN: ,GCS: , 04:08,BP: 144/74 M,PULSE: 93,RR: 17 R,SPO2: Ox,ETCO2: ,BG: ,PAIN: ,GCS: , 04:08,BP: / M,PULSE: ,RR: R,SPO2: Ox,ETCO2: ,BG: ,PAIN: ,GCS: 15, 04:10,Depart Scene 04:10,BP: / M,PULSE: ,RR: R,SPO2: Ox,ETCO2: ,BG: ,PAIN: 10,GCS: , 04:13,12-Lead ECG,Response: UnchangedSucceeded, 04:13,BP: / M,PULSE: ,RR: R,SPO2: Ox,ETCO2: ,BG: ,PAIN: ,GCS: , 04:19,BP: / M,PULSE: ,RR: R,SPO2: Ox,ETCO2: ,BG: ,PAIN: 10,GCS: , 04:19,At Destination 04:20,BP: / M,PULSE: ,RR: R,SPO2: 97 Ox,ETCO2: ,BG: ,PAIN: ,GCS: , 04:20,BP: 155/64 M,PULSE: 96,RR: 17 R,SPO2: Ox,ETCO2: ,BG: ,PAIN: ,GCS: , 04:20,BP: / M,PULSE: ,RR: R,SPO2: Ox,ETCO2: ,BG: ,PAIN: ,GCS: 15, 04:32,Call Closed Disclaimer v1.1 Copyright 2020 [employer] This EMS Care Summary contains data elements from the applicable legal record (which may be displayed differently). It is designed to provide pertinent information for the following purposes: continuity of care, clinical quality, and state data reporting. The complete legal record is available to ED staff and administrators of the receiving hospital in [employer] Patient Tracker. All data is provided "as is."
[2020-11-15] MEDS ORDERED: HYDROCODON-ACE1 EAC7 PO ×2 (04:34→08:23)
[2020-11-15] MEDS ORDERED: DILTIAZEM ER180 M2 PO (04:35)
[2020-11-15] MEDS ORDERED: PROTONIX40 M3 PO (04:35)
[2020-11-15 05:09] LABS: ABSOLUTE LYMPHOCYTES 1.3 thou/uL (0.8-5.3); ABSOLUTE MONOCYTES 0.6 thou/uL (0.0-1.2); ABSOLUTE NEUTROPHILS 5.1 thou/uL (1.6-8.1); BASOPHILS 0.5 %; EOSINOPHILS 0.3 %; HEMATOCRIT 42.3 % (37.0-47.0); HEMOGLOBIN 14.2 gm/dL (12.0-15.0); MCHC 33.5 g/dL (28.0-37.0); MCV 98.6 fL (80.0-100.0); MONOCYTES 8.4 %; MPV 7.3 fl. (7.2-11.1); NUCLEATED RBCS 0 /100WBC; PLATELET COUNT* 300 thou/uL (150-400); POLYS 72.8 %; RBC 4.29 mil/uL (4.20-5.00); RDW-CV 13.4 % (10.5-14.5)
[2020-11-15 05:20] LABS: CALCIUM 8.6 mg/dL (8.5-10.1); CREATININE 1.1 mg/dL (0.6-1.3); POTASSIUM 3.5 mmol/L (3.5-5.1)
[2020-11-15 05:21] LABS: URINE BILIRUBIN NEGATIVE (Negative); URINE BLOOD TRACE (Negative); URINE CLARITY CLEAR; URINE COLOR YELLOW; URINE GLUCOSE-RANDOM NEGATIVE (Negative); URINE KETONES 1+ (Negative); URINE LEUKOCYTES-REFLEX NEGATIVE (Negative); URINE NITRITE-REFLEX NEGATIVE (Negative); URINE PROTEIN NEGATIVE (Negative); URINE UROBILINOGEN 0.2 E.U./dl (0.2-1.0)
[2020-11-15 05:24] LABS: ALBUMIN 3.6 g/dL (3.4-5.0); TOTAL BILIRUBIN 0.3 mg/dL (<0.1-1.0); TOTAL PROTEIN 7.4 g/dL (6.4-8.2)
[2020-11-15 08:41] VITALS: BP 165/54
--- NOTE | 2020-11-15 09:32 | EKG ---
[place] [address] ELECTROCARDIOGRAM REPORT Name: KWESI PERERA Room: [facility]#: [id number] Admission: 11/15/20 Attend Phys: Discharge: Date of : [birth year] Date of Service: 11/15/20 0427 Report #: [id number] THIS REPORT FOR: //name// [facility] ED Test Date: 2020-11-15 Test Time: 04:27:42 Pat Name: KWESI PERERA Department: Room: Gender: Director Nicu: : 1930 Requested By: Natalie Gomez Order Number: [id number] MD: Fly Viera Measurements Intervals [place] Rate: 84 P: 64 NM: 196 QRS: -46 QRSD: 168 T: 131 QT: 426 QTc: 504 Interpretive Statements A-V dual-paced rhythm with some inhibition No further analysis attempted due to paced rhythm Compared to ECG 02/16/2020 14:38:40 No significant changes Electronically Signed On 11-15-2020 9:31:54 CDT by Fly Viera [email or web address] <ELECTRONICALLY SIGNED> By: Monty Viera MD, [facility] 11/15/20 0931 6 6 Monty Viera MD, [facility] /EPI
== END 2020-11-15 11:13 | disposition home or self-care (01) ==
LOC: M.ERS 04:21
PROVIDERS: Emergency Medicine
DX: R07.89 Other chest pain (principal); M54.6 Pain in thoracic spine; G89.29 Other chronic pain; R11.0 Nausea; R45.1 Restlessness and agitation; I10 Essential (primary) hypertension; Z95.0 Presence of cardiac pacemaker; Z90.49 Acquired absence of other specified parts of digestive tract; Z90.89 Acquired absence of other organs; Z90.711 Acquired absence of uterus with remaining cervical stump; Z90.5 Acquired absence of kidney; Z79.899 Other long term (current) drug therapy

== ENCOUNTER 2021-05-25 06:47 | Inpatient (IN) | payer OTHER ==
[~2021-05-25] VITALS: Ht 162.6 cm; Wt 52.6 kg
[~2021-05-25 06:47] MED LIST changes: +DILTIAZEM ER180 M2 PO; +PROTONIX40 M3 PO
[2021-05-25 06:48] VITALS: BP 161/78
[2021-05-25 07:20] LABS: ABSOLUTE LYMPHOCYTES 1.3 thou/uL (0.8-5.3); ABSOLUTE MONOCYTES 0.3 thou/uL (0.0-1.2); ABSOLUTE NEUTROPHILS 2.8 thou/uL (1.6-8.1); BASOPHILS 0.4 %; HEMATOCRIT 41.1 % (37.0-47.0); HEMOGLOBIN 13.9 gm/dL (12.0-15.0); LYMPHOCYTES 28.8 %; MCH 32.3 pg (26.0-34.0); MCHC 33.9 g/dL (28.0-37.0); MCV 95.2 fL (80.0-100.0); MONOCYTES 7.6 %; MPV 6.8 fl. (7.2-11.1); NUCLEATED RBCS 0 /100WBC; PLATELET COUNT* 244 thou/uL (150-400); POLYS 63.2 %; RBC 4.32 mil/uL (4.20-5.00); RDW-CV 13.3 % (10.5-14.5); WBC 4.5 thou/uL (4.0-11.0)
[2021-05-25 07:36] LABS: CALCIUM 8.6 mg/dL (8.5-10.1); CREATININE 0.8 mg/dL (0.6-1.3); POTASSIUM 3.8 mmol/L (3.5-5.1)
[2021-05-25 07:41] LABS: ALBUMIN 3.6 g/dL (3.4-5.0); TOTAL BILIRUBIN 0.7 mg/dL (<0.1-1.0); TOTAL PROTEIN 7.3 g/dL (6.4-8.2)
[2021-05-25 08:39] LABS: APTT 29.6 Seconds (25.0-31.3)
--- NOTE | 2021-05-25 10:02 | EKG ---
[place] [address] ELECTROCARDIOGRAM REPORT Name: KWESI PERERA Room: [place] [address] ADM IN [facility].#: [id number] Admission: 05/25/21 Attend Phys: Aziza Arteaga Discharge: Date of : [birth year] Date of Service: 05/25/21 0653 Report #: [id number] THIS REPORT FOR: //name// [facility] ED Test Date: 2021-05-25 Test Time: 06:53:47 Pat Name: KWESI PERERA Department: Room: [facility] Gender: F Cannon Fire Direction Specialist: TONEY : 1930 Requested By: Kathryn Mazariegos Order Number: [id number] MD: Kamran Linda Measurements Intervals [place] Rate: 68 P: -27 CA: 169 QRS: -53 QRSD: 174 T: 146 QT: 448 QTc: 477 Interpretive Statements Atrial-ventricular dual-paced rhythm No further analysis attempted due to paced rhythm Baseline wander in lead(s) V6 Compared to ECG 11/15/2020 04:27:42 No significant changes Electronically Signed On 05-25-2021 10:01:57 CDT by Kamran Linda [email or web address] <ELECTRONICALLY SIGNED> By: Kamran Linda MD, FACC 05/25/21 1001 2 0653 Kamran Linda MD, FAC /EPI
[2021-05-25 13:30] VITALS: BP 130/51
[2021-05-25 16:10] VITALS: BP 130/51
[2021-05-25 16:30] VITALS: BP 147/63
--- NOTE | 2021-05-25 19:05 | 2DMMODE ---
[place] [address] 2 D/M-MODE ECHOCARDIOGRAM Name: PERERA,KWESI Carly Room: [address] IN [facility]#: [id number] Admission: 05/25/21 Attend Phys: Aziza Arteaga Discharge: Date of : [birth year] Date of Service: 05/25/21 1904 Report #: [id number] THIS REPORT FOR: cc: Chikis Mooney MD, Ghazal A. MD Blick, David R. MD [facility] ~ ADDENDUM APPROVED REPORT Study performed: 05/25/2021 15:50:22 EXAM: Comprehensive 2D, Doppler, and color-flow Echocardiogram Patient Location: In-Patient Room #: er Status: routine BSA: 1.55 HR: 72 bpm BP: 130/51 mmHg Rhythm: NSR Other Information Study Quality: Good Indications Chest Pain 2D Dimensions IVSd: 12.89 (7-11mm) LVOT Diam: 19.72 (18-24mm) LVDd: 38.30 mm PWd: 10.47 (7-11mm) Ascending Ao: 27.93 (22-36mm) LVDs: 23.47 (25-40mm) Aortic Root: 32.56 mm Aortic Valve AoV Peak Amado.: 1.36 m/s AO Peak Gr.: 7.36 mmHg LVOT Max P.13 mmHg AO Mean Gr.: 4.25 mmHg LVOT Mean P.22 mmHg LVOT Max V: 0.73 m/s AO V2 VTI: 28.08 cm LVOT Mean V: 0.52 m/s [place] (VTI): 1.78 cm2 LVOT V1 VTI: 16.32 cm AI Bandera: 1.62 m/s2 AI PHT: 573.31 ms Mitral Valve E/A Ratio: 0.93 [place] [address] 2 D/M-MODE ECHOCARDIOGRAM Name: KWESI PERERA Room: [address] IN [facility].#: [id number] Admission: 05/25/21 Attend Phys: Aziza Arteaga Discharge: Date of : [birth year] Date of Service: 05/25/21 1904 Report #: [id number] MV Decel. Time: 242.42 ms MV E Max Amado.: 0.53 m/s MV PHT: 70.30 ms MVA (PHT): 3.13 cm2 TDI E/Lateral E': 5.30 Lateral E' Amado.: 0.10 m/s Pulmonary Valve PV Peak Amado.: 0.81 m/s PV Peak Gr.: 2.62 mmHg Tricuspid Valve RAP Estimate: 5.00 mmHg TR Peak Gr.: 24.38 mmHg RVSP: 29.00 mmHg PA Pressure: 29.00 mmHg Left Ventricle The left ventricle is normal size. Paradoxical septal motion There is normal left ventricular wall thickness. Left ventricular systolic function is borderline. LVEF is 45-50%. The left ventricular diastolic function is normal. Right Ventricle The right ventricle is normal size. The right ventricular systolic function is normal. Pacemaker lead is present in the right ventricle. Atria The left atrium size is normal. The right atrium size is normal. Aortic Valve Mild aortic valve sclerosis. trace aortic regurgitation. There is no aortic valvular stenosis. Mitral Valve The mitral valve is normal in structure. Trace mitral regurgitation. No evidence of mitral valve stenosis. Tricuspid Valve The tricuspid valve is normal in structure. Mild tricuspid regurgitation. No pulmonary hypertension. Pulmonic Valve The pulmonary valve is normal in structure. There is trace pulmonic [place] [address] 2 D/M-MODE ECHOCARDIOGRAM Name: KWESI PERERA Room: [address] IN [facility]#: [id number] Admission: 05/25/21 Attend Phys: Aziza Arteaga Discharge: Date of : [birth year] Date of Service: 05/25/21 1904 Report #: [id number] Great Vessels The aortic root is normal in size. IVC is normal in size and collapses >50% with inspiration. Pericardium There is no pericardial effusion. <Conclusion> LVEF is 45-50%. Left ventricular systolic function is borderline. <ELECTRONICALLY SIGNED> By: Kamran Linda MD, FACC 05/25/211903 03 03 Kamran Linda MD, FACC /INF
[2021-05-25 20:00] VITALS: BP 142/60
[2021-05-26] VITALS: BP 124/67
[2021-05-26 05:12] LABS: HEMATOCRIT 36.3 % (37.0-47.0); HEMOGLOBIN 12.3 gm/dL (12.0-15.0); MCH 32.8 pg (26.0-34.0); MCV 96.2 fL (80.0-100.0); MPV 7.2 fl. (7.2-11.1); RBC 3.77 mil/uL (4.20-5.00); WBC 5.4 thou/uL (4.0-11.0)
--- NOTE | 2021-05-26 07:56 | NUR ---
ASSUMED PT CARE AT APPROX 1930. PT IS AWAKE AND ORIENTED X4. PT IS NOT IN DISTRESS, NO DESATURATIONS NOTED ON ROOM AIR. PT IS TRACING AV/V PACED ON THE ROOF TRUSS MACHINE TENDER. PT C/O HEADACHE, BACK PAIN PARTIALLY RELIEVED BY PAIN MEDS GIVEN PER OCT. NO ACUTE CHANGES THIS SHIFT. CALL LIGHT WITHIN REACH. HOURLY ROUNDING DONE FOR PT SAFETY.
[2021-05-26 08:42] VITALS: BP 123/45
[2021-05-26 09:05] LABS: CALCIUM 8.2 mg/dL (8.5-10.1); POTASSIUM 3.8 mmol/L (3.5-5.1)
--- NOTE | 2021-05-26 10:03 | CON ---
[address] [address] CONSULTATION Name: KWESI PERERA Room: [address] IN [facility]#: [id number] Admission: 05/25/21 Attend Phys: Thais Peng Discharge: Date of : [birth year] Report #: [id number] THIS REPORT FOR: cc: Chikis Mooney MD, Ghazal A. MD Blick, David R. MD [facility] ~ cc: Chikis Mooney DATE OF CONSULTATION: 05/25/2021 HISTORY OF PRESENT ILLNESS: The patient is an 89-year-old single white female who I was last seen in the emergency room today after she complained of chest pain. Unfortunately, there are no old records available. The history is obtained from the patient. She was actually admitted here in 07/2019 with nausea and vomiting, felt to have gastroenteritis. She was admitted here in 2019 with chronic back pain. She has a history of narcotic dependency. She has a history of chronic back pain and has been in the pain clinic in the past and has had injections before. She was brought to the emergency room this morning after having severe chest pain, went into her back. It has been a constant pain. It is not related to bending or lifting. She is not very active and uses a walker. She denied associated shortness of breath, diaphoresis, nausea. It is not related to food. She has had no trauma to her chest. She denies any bleeding episodes. She denies any rash. She denied any shortness of breath, fever, cough. She notes occasional episodes when her heart rate will increase but she has had no syncope. PAST MEDICAL HISTORY: She has had cholecystectomy. She had a kidney removed in the past because of kidney stones. She has had appendectomy. Her first pacemaker inserted years ago by ____, she underwent a generator change several years later. She continues to see the outreach director at [facility]. She has no history of high blood pressure, diabetes, hyperlipidemia. CURRENT MEDICATIONS: Includes diclofenac gel, hydrocodone, Lipitor, Eliquis, diltiazem, Protonix. ALLERGIES: She has no known drug allergies. FAMILY HISTORY: Her mom had heart problems. SOCIAL HISTORY: She is , lives in [place]. She uses a walker. No smoking. Rarely drinks alcohol. REVIEW OF SYSTEMS: She has had no history of stroke, asthma, liver disease, cancer, psychiatric illness, [place] [address] CONSULTATION Name: KWESI PERERA Room: [address]#: [id number] Admission: 05/25/21 Attend Phys: Thais Peng Discharge: Date of : [birth year] Report #: [id number] PHYSICAL EXAMINATION: GENERAL: Revealed an elderly, frail-appearing female who appeared in no acute distress. VITAL SIGNS: She had a blood pressure of 140/70, pulse is 80. She is afebrile. HEENT: She was anicteric. Conjunctivae pink. Mucosa is moist. NECK: Veins not distended. No carotid bruits. Neck is supple. CHEST: Revealed crackles in both lung briceño. HEART: Regular rate and rhythm. Grade 2 systolic ejection murmur. ABDOMEN: Soft. EXTREMITIES: Had no pitting edema. Dorsalis pedis pulse 2+ bilaterally. SKIN: Cool and dry. NEUROLOGIC: Nonfocal. DIAGNOSTIC STUDIES: ECG showed an AV sequentially paced rhythm. Her workup in the Emergency Room, the patient had a portable chest x-ray that showed cardiomegaly. There appeared to be coronary stents, otherwise clear lung briceño. LABORATORY DATA: Creatinine 0.8. Her high sensitivity troponin was 10. Her white blood cell count 4.5, hemoglobin 13.9. Her COVID antigen stat test was negative. IMPRESSION AND RECOMMENDATIONS: 1. Chest pain. Suspect musculoskeletal. No evidence of acute myocardial infarction. Recommend no further cardiac evaluation. 2. Previous coronary stent. No symptoms of angina. I would not recommend stress testing at this time. Since the patient is on Eliquis, I would not recommend aspirin. 3. Sick sinus syndrome. The patient currently paced. 4. Use of Eliquis. Possible previous episode of atrial fibrillation. I would continue Eliquis and diltiazem. 5. History of kidney stones. <ELECTRONICALLY SIGNED> By: Kamran Linda MD, FACC 05/26/21 1003 1432 1950Davithais Linda MD, FACC /nt
[2021-05-26 12:00] VITALS: BP 136/69
[2021-05-26 12:41] VITALS: BP 136/69
--- NOTE | 2021-05-26 12:49 | NUR ---
CT OF HEAD ORDERED AND COMPLETED WITH RESULTS REVIEWED PER PHYSICIAN-ORDERS NOTED FOR OKAY TO D/C TO HOME THIS SHIFT PER DR. LOU- IV TO LEFT HAND D/C'D ALONG WITH CUTTER AND PRESSER PRIOR TO D/C- D/C TEACHING/EDUCATION/NEEDED FOLLOW UP'S COMMUNICATED TO PT WITH VERBAL UNDERSTANDING NOTED- WRITTEN EDUCATION PROVIDED TO PT PRIOR TO D/C WITH ALL QUESTIONS AND CONCERNS ADDRESSED PRIOR TO D/C- BELONGINGS PACKED AND ACCOUNTED FOR PER PT AND TECH- PT CURRENLTY AWAITING DAUGHTER FOR D/C- ALL NEEDS MET AT THIS TIME
[2021-05-26 16:06] VITALS: BP 136/69
== END 2021-05-26 16:05 | disposition home or self-care (01) | DRG 313 ==
LOC: M.ERS 06:47 → M.TBA-ER 09:11 → M.2W 16:18
PROVIDERS: Personal Emergency Response Attendant; ADMIT Internal Medicine; ATTEND Internal Medicine
DX: R07.89 Other chest pain (principal); E87.1 Hypo-osmolality and hyponatremia; Z20.822 Contact with and (suspected) exposure to COVID-19; G89.29 Other chronic pain; M54.9 Dorsalgia, unspecified; I10 Essential (primary) hypertension; E78.5 Hyperlipidemia, unspecified; E11.9 Type 2 diabetes mellitus without complications; I49.5 Sick sinus syndrome; H53.2 Diplopia; I48.0 Paroxysmal atrial fibrillation; Z95.0 Presence of cardiac pacemaker; Z90.49 Acquired absence of other specified parts of digestive tract; Z90.710 Acquired absence of both cervix and uterus; Z90.5 Acquired absence of kidney; Z82.49 Family history of ischemic heart disease and other diseases of the circulatory system; Z95.5 Presence of coronary angioplasty implant and graft; Z87.442 Personal history of urinary calculi; Z79.899 Other long term (current) drug therapy